=== PATIENT | male | born 1980 | race Caucasian/White ===

== ENCOUNTER 2021-11-10 07:51 | Emergency (ER) | payer OTHER ==
[2021-11-10 08:41] LABS: HEMOGLOBIN 15.9 gm/dl (14.0-17.5); RED BLOOD COUNT 5.11 M/UL (4.20-5.50)
[2021-11-10 09:08] LABS: BUN/CREATININE RATIO 16 (0-10)
== END 2021-11-10 12:28 | disposition home or self-care (01) ==
LOC: ER1 07:51
PROVIDERS: Physician Assistant Medical
DX: R07.9 Chest pain, unspecified (principal); I11.9 Hypertensive heart disease without heart failure; I25.2 Old myocardial infarction; F17.210 Nicotine dependence, cigarettes, uncomplicated
CPT/HCPCS: 71045; 80053; 82550; 82553; 83874; 84439; 84443; 84484; 85025; 85379; 93005; 99285

== ENCOUNTER 2022-04-08 15:07 | Emergency (ER) | payer OTHER | END 2022-04-08 16:20 | disposition home or self-care (01) | LOC: ER1 15:07 | DX: H11.31 Conjunctival hemorrhage, right eye (principal) | CPT/HCPCS: 99282 ==

== ENCOUNTER 2022-05-01 22:19 | Emergency (ER) | payer OTHER | END 2022-05-02 00:09 | disposition home or self-care (01) | LOC: ER1 22:19 | DX: J02.9 Acute pharyngitis, unspecified (principal); R51.9 Headache, unspecified; Z20.822 Contact with and (suspected) exposure to COVID-19; F17.200 Nicotine dependence, unspecified, uncomplicated; I10 Essential (primary) hypertension | CPT/HCPCS: 87081; 87880; 99283; U0002 ==